=== PATIENT | female | born 1965 | race Hispanic/Latino ===

== ENCOUNTER 2023-11-06 21:19 | Emergency (ER) | payer BC ==
[~2023-11-06] VITALS: Ht 162.6 cm; Wt 72.1 kg
[2023-11-06 23:04] VITALS: BP 123/74; PULSE 72; RESP 20
== END 2023-11-07 02:08 | disposition left against medical advice (07) ==
LOC: EDH 21:19
DX: R51.9 Headache, unspecified (principal); Z53.21 Procedure and treatment not carried out due to patient leaving prior to being seen by health care provider